=== PATIENT | male | born 1940 | race Caucasian/White ===

== ENCOUNTER 2024-07-16 06:18 | Outpatient (REF) | payer OTHER, SELFPAY ==
[2024-07-16 06:22] LABS: MANUAL DIFF FLAG NO
--- OUTSIDE RECORDS SUMMARY | 2024-07-16 06:22 | XMS_ITS | Continuity of Care Document ---
Author Organization [facility] Address [address] [place] [address]- Care Team Providers Care Supervisor Drilling And Shooting Name Role Phone Raine TOUSSAINT, Emma Jason Primary Care Physician Encounter [facility] Date(s): 06/11/24 - 07/11/[address] [id number] Encounter Type: Triage Allergies, Adverse Reactions, Alerts Substance Criticality Severity Reaction Reaction Severity Status ZyPREXA Active sulfa drugs 1 Low criticality Mild Hives rash Active Bee Stings Active 1Has taken in the past without problem Immunizations Given and Recorded Vaccine Date Status Refusal Reason influenza virus vaccine, inactivated 05/10/24 Natalio rded influenza virus vaccine, inactivated 04/29/23 Natalio rded influenza virus vaccine, inactivated 05/21/22 Give n influenza virus vaccine, inactivated 05/05/21 Natalio rded influenza virus vaccine, inactivated 04/08/20 Natalio rded influenza virus vaccine, inactivated 03/31/19 Natalio rded influenza virus vaccine, inactivated 05/21/18 Natalio rded influenza virus vaccine, inactivated 05/06/13 Natalio rded SARS-CoV-2(COVID-19)mRNA-LNP vac([id number]) 05/12/23 Recorded RSV vaccine preF3, recombinant 04/29/23 Recorded pneumococcal 20-valent conjugate vaccine 12/13/22 Given [id number] 12y+ bivalent booster vax 12/13/22 Given [id number] 12y+ bivalent booster vax 05/01/22 Recorded SARS-CoV-2 mRNA ([id number]) vax 11/17/21 Recorded pneumococcal 23-valent vaccine 06/22/21 Given SARS-CoV-2 (COVID-19) mRNA BNT-162b2 vac 05/14/21 Recorded SARS-CoV-2 (COVID-19) mRNA BNT-162b2 vac 10/09/20 Given SARS-CoV-2 (COVID-19) mRNA BNT-162b2 vac 09/18/20 Given Influenza Virus Vaccine (oldterm) 1 04/26/20 Recor ded zoster vaccine, inactivated 08/22/18 Recorded 1Result Comment: hidose Medications alendronate 70 mg oral tablet 1 tablet, By Mouth, Every week, # 12 tablet, 1 Refills, Maintenance, 05/25/24 9:18:00 AM EDT, [facility]/pharmacy #[id number], 187, cm, 05/22/24 12:25:00 EDT, Height, 73, kg, 12/08/23 11:13:00 EDT, Dry Weight Start Date: 05/25/24 Status: Ordered Quantity: 12.0 Unit: tablet Repeat number: 2 Alpha Lipoic = 600 mg, By Mouth, 2 times a day, 0 Refills, Maintenance, 10/04/22 12:54:00 PM EST, Partial fill upon patient request if the prescription is for a schedule II opioid drug. Start Date: 10/04/22 Status: Ordered Repeat number: 1 atorvastatin 80 mg oral tablet 1 tablet, By Mouth, Daily at bedtime, # 90 tablet, 1 Refills, Maintenance, 06/22/24 3:09:00 PM EST,[id number], 187, cm, 06/11/24 10:12:00 EST, Height, 73, kg, 12/08/23 11:13:00 EDT, Dry Weight Start Date: 06/22/24 Status: Ordered Quantity: 90.0 Unit: tablet Repeat number: 1 BD UF MINI PEN NEEDLE [id number] BD UF MINI PEN NEEDLE [id number], See Instructions, # 360 Unknown, 4 Refills, Maintenance, USE TO INJECT INSULIN 4 TIMES DAILY, 07/21/23 2:44:00 PM EST, 187, cm, 07/19/23 11:08:00 EST, Height, 77.3, kg,07/17/23 6:30:00 EST, Dry Weight Start Date: 07/21/23 Status: Ordered Quantity: 360.0 Unit: Unknown Repeat number: 1 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 Refills 0, Maintenance, 1 pair, 04/15/24 9:45:00 AM EDT, Supply Start Date: 04/15/24 Status: Ordered Quantity: 1.0 Unit: Unknown Repeat number: 1 docusate sodium = 100 mg, By Mouth, 2 times a day, PRN as needed for constipation, 0 Refills, Maintenance, 10/24/16 4:06:07 PM EDT Start Date: 10/24/16 Status: Ordered Repeat number: 1 donepezil 10 mg oral tablet 1, tablet, By Mouth, Daily, # 90 tablet, Refills 3, Maintenance, 04/05/24 4:04:00 PM EDT, Route to Pharmacy Electronically, [id number], 187, cm, 02/03/24 11:37:00 EDT, Height, 73, kg, 12/08/23 11:13:00 EDT, Dry Weight Start Date: 04/05/24 Status: Ordered Quantity: 90.0 Unit: tablet Repeat number: 1 Eliquis 5 mg oral tablet 1 tablet, By Mouth, 2 times a day, # 180 tablet, 3 Refills, Maintenance, 06/21/24 3:30:00 PM EST, [id number], 187, cm, 06/11/24 10:12:00 EST, Height, 73, kg, 12/08/23 11:13:00 EDT, Dry Weight Start Date: 06/21/24 Status: Ordered Quantity: 180.0 Unit: tablet Repeat number: 1 EpiCeram Skin Barrier Emulsion 0 Refills, Maintenance, 10/04/22 12:54:00 PM EST, Partial fill upon patient request if the prescription is for a schedule II opioid drug. Start Date: 10/04/22 Status: Ordered Repeat number: 1 EpiPen 2-Bismark 0.3 mg injectable kit = 0.3 mg, Intramuscular, Once, PRN Anaphylactic Reaction, may repeat if necessary, # 1 kit, 5 Refills, Soft Stop, 01/16/24 6:54:00 AM EDT, [facility]/pharmacy #[id number], 187, cm, 01/08/24 10:15:00 EDT, Height, 73, kg, 12/08/23 11:13:00 EDT, Dry Weight Start Date: 01/16/24 Status: Ordered Quantity: 1.0 Unit: kit Repeat number: 6 escitalopram 10 mg oral tablet 1 tablet, By Mouth, Daily, # 90 tablet, 3 Refills, Maintenance, 10/09/23 10:31:00 AM EST, [id number], 187, cm, 08/25/23 11:05:00 EST, Height, 77.3, kg, 07/17/23 6:30:00 EST, Dry Weight Start Date: 10/09/23 Status: Ordered Quantity: 90.0 Unit: tablet Repeat number: 1 FREESTYLE 28G LANCETS FREESTYLE 28G LANCETS, See Instructions, # 300 Unknown, 1 Refills, Maintenance, USE TO CHECK BLOOD SUGAR 3 TIMES DAILY, 03/29/24 3:57:00 PM EDT, 187, cm, 02/03/24 11:37:00 EDT, Height, 73, kg, 12/08/23 11:13:00 EDT, Dry Weight Start Date: 03/29/24 Status: Ordered Quantity: 300.0 Unit: Unknown Repeat number: 1 FREESTYLE 28G LANCETS FREESTYLE 28G LANCETS, See Instructions, # 100 Unknown, 11 Refills, Maintenance, USE TO CHECK BLOODSUGAR 3 TIMES DAILY. E10.65., 05/27/23 1:45:00 PM EDT, 187, cm, 04/14/23 11:34:00 EDT, Height, 72, kg, 01/22/23 17:28:00 EDT, Dry Weight Start Date: 05/27/23 Status: Ordered Quantity: 100.0 Unit: Unknown Repeat number: 1 FreeStyle Nemesio 2 Cuero FreeStyle Nemesio 2 Cuero, See Instructions, # 1 each, Refills 0, Tot. Refills 0, Maintenance, use to continuously monitor BG levels. E11.9, 01/16/22 12:01:00 PM EDT, Supply, 187, cm, 01/16/22 10:01:00EDT, Height, 67, kg, 09/06/21 15:00:00 EST, Dry Weight Start Date: 01/16/22 Status: Ordered Quantity: 1.0 Unit: each Repeat number: 1 FreeStyle Nemesio 2 Sensors FreeStyle Nemesio 2 Sensors, See Instructions, # 2 each, Refills 9, Tot. Refills 9, Maintenance, Use to continuously monitor BG levels. Change every 14 days. E11.9, 01/16/22 12:02:00 PM EDT, Supply, 187, cm, 01/16/22 10:01:00 EDT, Height, 67, kg, 09/06/21 15:00:00 EST, Dry Weight Start Date: 01/16/22 Status: Ordered Quantity: 2.0 Unit: each Repeat number: 10 Freestyle Lite Lancets See Instructions, # 100 each, Refills 11, Tot. Refills 11, Maintenance, Use to check blood sugar 3 times daily. E10.65., 05/09/22 8:49:00 AM EDT, Supply, 187, cm, 05/04/22 10:58:00 EDT, Height, 67, kg, 09/06/21 15:00:00 EST, Dry Weight Start Date: 05/09/22 Stop Date: 05/04/23 Status: Ordered Quantity: 100.0 Unit: each Repeat number: 12 Lancets See Instructions, # 400 each, Refills 3, Tot. Refills 3, Maintenance, onetouch delica lancets use 4times daily e11.9, 07/15/23 4:54:00 PM EST, Supply, 187, cm, 07/07/23 9:29:00 EST, Height, 72, kg, 01/22/23 17:28:00 EDT, Dry Weight Start Date: 07/15/23 Status: Ordered Quantity: 400.0 Unit: each Repeat number: 4 Lantus Solostar Pen 100 units/mL subcutaneous solution See Instructions, Take 17 units Subcutaneous Infusion Daily. E11.9, # 15 mL, 4 Refills, Maintenance, 01/08/24 11:15:00 AM EDT, [facility]/pharmacy #[id number], Partial fill upon patient request if the prescription is for a schedule II opioid drug., 187, cm, 01/08/24 10:15:00 EDT, Height, 73, kg, 12/08/23 11:13:00EDT, Dry Weight Start Date: 01/08/24 Status: Ordered Quantity: 15.0 Unit: mL Repeat number: 5 Loratadine By Mouth, Daily, Refills 0, Maintenance, 05/04/22 10:59:00 AM EDT, Partial fill upon patient requestif the prescription is for a schedule II opioid drug. Start Date: 05/04/22 Status: Ordered Repeat number: 1 Melatonin Daily at bedtime, 0 Refills, Maintenance, 01/22/23 5:26:00 PM EDT, Partial fill upon patient requestif the prescription is for a schedule II opioid drug. Start Date: 01/22/23 Status: Ordered Repeat number: 1 memantine 10 mg oral tablet 1 tablet, By Mouth, 2 times a day, # 180 tablet, 2 Refills, Maintenance, 10/09/23 10:31:00 AM EST, [id number], 187, cm, 08/25/23 11:05:00 EST, Height, 77.3, kg, 07/17/23 6:30:00 EST, Dry Weight Start Date: 10/09/23 Status: Ordered Quantity: 180.0 Unit: tablet Repeat number: 1 Metaxalone = 800 mg, By Mouth, 2 times a day, 0 Refills, Maintenance, 01/22/23 5:25:00 PM EDT, Partial fill upon patient request if the prescription is for a schedule II opioid drug. Start Date: 01/22/23 Status: Ordered Repeat number: 1 MiraLax oral powder for reconstitution = 17 Gm, By Mouth, 3 times a day, # 238 Gm, 0 Refills, Maintenance, 08/25/23 11:05:00 AM EST, REC Powder, Partial fill upon patient request if the prescription is for a schedule II opioid drug. Start Date: 08/25/23 Status: Ordered Quantity: 238.0 Unit: g Repeat number: 1 Multivitamin Daily, 0 Refills, Maintenance, 10/24/16 4:05:55 PM EDT Start Date: 10/24/16 Status: Ordered Repeat number: 1 NovoLOG FlexPen 100 units/mL subcutaneous solution See Instructions, Subcutaneous Injection, Use 6-11 units before meals via slidings scale. MDD 33 units e11.9, # 30 mL, 4 Refills, Maintenance, 01/08/24 11:14:00 AM EDT, [facility]/pharmacy #[id number], Partial fillupon patient request if the prescription is for a schedule II opioid drug., 187, cm, 01/08/24 10:15:00 EDT, Height, 73, kg, 12/08/23 11:13:00 EDT, Dry Weight Start Date: 01/08/24 Stop Date: 04/02/25 Status: Ordered Quantity: 30.0 Unit: mL Repeat number: 5 One touch Verio strips One touch Verio strips, See Instructions, # 200 each, Refills 6, Tot. Refills 6, Maintenance, Used to check BG 4x/day DX E10.65, 08/30/22 5:45:00 PM EST, Supply, 186, cm, 08/30/22 15:48:00 EST, Height, 67, kg, 05/20/22 15:54:00 EDT, Dry Weight Start Date: 08/30/22 Status: Ordered Quantity: 200.0 Unit: each Repeat number: 7 ONE TOUCH VERIO TEST STRIP ONE TOUCH VERIO TEST STRIP, See Instructions, # 400 Unknown, 3 Refills, Maintenance, CHECK BLOOD GLUCOSE 4 TIMES A DAY, 09/30/23 12:28:00 PM EST, 187, cm, 08/25/23 11:05:00 EST, Height, 77.3, kg, 07/17/23 6:30:00 EST, Dry Weight Start Date: 09/30/23 Status: Ordered Quantity: 400.0 Unit: Unknown Repeat number: 1 One Touch Verio Test Strips One Touch Verio Test Strips, See Instructions, # 150 each, Refills 9, Tot. Refills 9, Maintenance, Use to check BG levels 4-5 times daily. E11.9., 01/16/22 12:03:00 PM EDT, Supply, 187, cm, 01/16/22 10:01:00 EDT, Height, 67, kg, 09/06/21 15:00:00 EST, Dry Weight Start Date: 01/16/22 Status: Ordered Quantity: 150.0 Unit: each Repeat number: 10 ONETOUCH VERIO FLEX METER ONETOUCH VERIO FLEX METER, See Instructions, # 1 Unknown, 0 Refills, Maintenance, 1 GLUCOMETER TO USE DAILY. E11.9, 08/03/23 10:49:00 AM EST, 187, cm, 07/19/23 11:08:00 EST, Height, 77.3, kg, 07/17/23 6:30:00 EST, Dry Weight Start Date: 08/03/23 Status: Ordered Quantity: 1.0 Unit: Unknown Repeat number: 1 OneTouch Verio Glucose Meter See Instructions, # 1 each, Refills 0, Tot. Refills 0, Maintenance, 1 glucometer to use daily. e11.9, 07/07/23 10:23:00 AM EST, Supply, 187, cm, 07/07/23 9:29:00 EST, Height, 72, kg, 01/22/23 17:28:00EDT, Dry Weight Start Date: 07/07/23 Status: Ordered Quantity: 1.0 Unit: each Repeat number: 1 OneTouch Verio Lancets See Instructions, # 400 each, Refills 3, Tot. Refills 3, Maintenance, Use 4 times daily to check sugars. E11.9, 01/08/24 11:20:00 AM EDT, Supply, 187, cm, 01/08/24 10:15:00 EDT, Height, 73, kg, 12/08/23 11:13:00 EDT, Dry Weight Start Date: 01/08/24 Status: Ordered Quantity: 400.0 Unit: each Repeat number: 4 OneTouch Verio Test Strips See Instructions, # 400 each, Refills 3, Tot. Refills 3, Maintenance, Use 4 times daily to check blood sugars. E11.9, 01/08/24 11:19:00 AM EDT, Supply, 187, cm, 01/08/24 10:15:00 EDT, Height, 73, kg, 12/08/23 11:13:00 EDT, Dry Weight Start Date: 01/08/24 Status: Ordered Quantity: 400.0 Unit: each Repeat number: 4 Pen Brawley, 31 G x 5 mm BD Ultra Fine III See Instructions, # 150 each, Refills 11, Tot. Refills 11, Maintenance, Use to inject insulin 4 times daily. E10.65., 30 day supply, 01/08/24 11:15:00 AM EDT, Supply, 187, cm, 01/08/24 10:15:00 EDT, Height, 73, kg, 12/08/23 11:13:00 EDT, Dry Weight Start Date: 01/08/24 Stop Date: 01/02/25 Status: Ordered Quantity: 150.0 Unit: each Repeat number: 12 SEROquel 50 mg oral tablet 1.5 tablet = 75 mg, By Mouth, Daily, # 135 tablet, 3 Refills, Maintenance, 01/14/24 12:58:00 PM EDT,Tablet, [facility]/pharmacy #[id number], Partial fill upon patient request if the prescription is for a scheduleII opioid drug., 187, cm, 01/08/24 10:15:00 EDT, Height, 73, kg, 12/08/23 11:13:00 EDT, Dry Weight Start Date: 01/14/24 Status: Ordered Quantity: 135.0 Unit: tablet Repeat number: 4 Tamsulosin 0.4 mg, By Mouth, Daily at bedtime, Refills 0, Maintenance, 01/22/23 5:25:00 PM EDT, Partial fill upon patient request if the prescription is for a schedule II opioid drug. Start Date: 01/22/23 Status: Ordered Repeat number: 1 valsartan 160 mg oral tablet 160 mg, 1, tablet, By Mouth, Daily, # 90 tablet, Refills 3, Tot. Refills 3, Maintenance, 12/23/22 12:45:00 PM EDT, Route to Pharmacy Electronically, [facility]/pharmacy #[id number], Partial fill upon patient request if the prescription is for a schedule II opioid drug., 187, cm, 12/17/22 11:29:00 EDT, Height, 57.1, kg, 11/21/22 21:57:00 EDT, Dry Weight Start Date: 12/23/22 Stop Date: 12/18/23 Status: Ordered Quantity: 90.0 Unit: tablet Repeat number: 4 VITAMIN D3 1,000 UNIT SOFTGEL 1 capsule, By Mouth, Daily, # 90 capsule, Refills 3 Tot. Refills 3, [facility]/pharmacy #[id number] Start Date: 07/05/19 Status: Ordered Quantity: 90.0 Unit: capsule Repeat number: 4 Problem List Condition Confirmation Course Effective Dates Status Health Status Informant Actinic keratosis Confirmed Active Adverse drug effect Confirmed Active Change in bowel habits Confirmed Active Weakness generalized Confirmed Active Generalized weakness Confirmed Active Ataxia Confirmed Active Bee sting-induced anaphylaxis Confirmed Active Edema of both legs Confirmed Active Bronchiectasis Confirmed Active Burning sensation of scrotum Confirmed Active Pseudogout Confirmed Active Chronic back pain Confirmed Active Chronic constipation Confirmed Active Obsessive-compulsive behavior Confirmed Active Coronary arteriosclerosis Confirmed Active Cough Confirmed Active Vaccine counseling Confirmed Active Degeneration of lumbar intervertebral disc Confirmed Active Degenerative joint disease involving multiple joints Confirmed Active Dementia Confirmed Active Diabetes mellitus Confirmed Active Diabetic neuropathy Confirmed Active Diarrhea Confirmed Active Mild diastolic dysfunction Confirmed Active Dizziness Confirmed Active Dysphagia Confirmed Active Dyspnea Confirmed Active Pedal edema Confirmed Active Fall at home Confirmed Active Tremor of both hands Confirmed Active Gastritis Confirmed Active GERD (gastroesophageal reflux disease) Confirmed Active Genetic mutation Confirmed Active Hand pain, left Confirmed Active History of Lyme disease Confirmed Active History of spinal fusion Confirmed Active Hypercholesterolemia Confirmed Active Hypertensive disorder Confirmed Active Hypomagnesemia Confirmed Active Impaired cognition Confirmed Active Dyspepsia Confirmed Active Renal lesion Confirmed Active Long-term current use of insulin Confirmed Active Symptomatic hypotension Confirmed Active Hypotension Confirmed Active Mixed dementia Confirmed Active Multiple actinic keratoses Confirmed Active Multiple nodules of lung Confirmed Active Nausea Confirmed Active DNR (do not resuscitate) Confirmed Active Osteoarthritis, multiple sites Confirmed Active Osteoporosis Confirmed Active Wrist pain, left Confirmed Active Paresthesia Confirmed Active Paroxysmal atrial fibrillation Confirmed Active Healthcare maintenance Confirmed Active Advance care planning Confirmed Active Therapeutic drug monitoring Confirmed Active Colon polyp Confirmed Active Loose muscle tone Confirmed Active Rectal irritation Confirmed Active Sensorineural hearing loss, bilateral Confirmed Active Solar erythema Confirmed Active Skin tear of elbow without complication Confirmed Active Vitamin D deficiency Confirmed Active Social History Social History Type Response Smoking Status Never smoker entered on: 02/15/16 Sex Sex Representation Male (finding) Patient Care team information Care Team Personnel Name: Ghada Rodrigues RN Position: [facility] RN Member Role: Primary Care Nurse Name: Emma Ni MD Position: [facility] Physician - Primary Care Member Role: PCP Address: [address] [place] [address], [address] [place] [id number] Telecom: Name: Fela Harding RN Position: [facility] RN Member Role: Primary Care Nurse Name: Catrina Millan RN Position: [facility] RN Member Role: Primary Care Nurse Name: Ellie Celestin RN Position: [facility] RN Member Role: Primary Care Nurse Name: Elayne Casanova RN Position: [facility] RN Member Role: Primary Care Nurse Name: Surinder Gu RN Position: [facility] RN Member Role: Primary Care Nurse Name: Vicki Blake [place] Position: [facility] JCARLOS Office Staff Member Role: [employer] Consulting Physician Name: Elissa Pina RN Position: [facility] RN Supv Member Role: Primary Care Nurse Name: Jailyn Pike RN Position: [facility] RN Member Role: Primary Care Nurse Name: Pita Ray RN Position: [facility] ED RN W/OE and Tasks Member Role: Primary Care Nurse Name: Tami Joiner NP Position: [facility] Associate Professional Member Role: Primary Care Nurse Address: [address] [place] [address] [address] [facility] [address] Telecom: Name: Gama Blanc RN Position: [facility] AMB Nurse Member Role: Primary Care Nurse Name: Denisha Abel RN Position: [facility] SN RN Member Role: Primary Care Nurse Care Team Related Persons Name: November Name: ROBER SINGH Insurance Providers Guarantor name: MARLENE SINGH [facility] Plan Information #: 1 Payer: [facility] Member Number: NA Policy Number: NA Group Number: NA
[2024-07-16 06:29] LABS: Basophils Percent Auto 0.6 % (0-2); Eosinophils Absolute Auto 0.3 X10*3/uL (0.0-0.4); Hematocrit 40.4 % (42.0-52.0); Hemoglobin 13.9 g/dl (14.0-18.0); Imm Gran Abs Auto 0.02 X10*3/uL (0.00-0.03); Imm Gran Pct Auto 0.3 % (0.0-0.4); Lymphocytes Absolute Auto 1.3 X10*3/uL (1.2-4.9); Lymphocytes Percent Auto 20.7 % (20-40); Mean Corpuscular HGB Conc 34.4 g/dl (31.0-36.0); Mean Corpuscular Volume 93.1 fL (80.0-98.0); Mean Platelet Volume 9.9 fL (9.4-12.4); Monocytes Percent Auto 16.2 % (2-11); Neutrophils Absolute Auto 3.6 x10*3/uL (2.0-8.3); Neutrophils Percent Auto 57.2 % (45-73); Platelet Count 233 X10*3/uL (160-400); Red Blood Count 4.34 X10*6/uL (4.60-5.80); Red Cell Distribution Width 12.6 % (11.0-16.0); White Blood Count 6.4 X10*3/uL (4.8-10.8)
[2024-07-16 06:53] LABS: Alanine Aminotransferase 18 U/L (0-40); Albumin Level 3.8 g/dL (3.5-5.0); Alkaline Phosphatase 111 U/L (39-117); Anion Gap 13 (12-20); Aspartate Amino Transferase 21 U/L (5-37); Bilirubin Total 0.3 mg/dL (0.0-1.0); Blood Urea Nitrogen 19 mg/dL (9-16); Calcium 9.1 mg/dL (8.4-10.2); Carbon Dioxide 26 mmol/L (22-29); Chloride 105 mmol/L (96-108); Cholesterol 157 mg/dL (<200); Estimated Glomerular Filt Rate > 60; Glucose Fasting 271 mg/dL (60-99); HDL Cholesterol 53 mg/dL (>40); LDL Cholesterol Calculated 91 mg/dL (<100); Potassium 3.6 mmol/L (3.3-5.1); Sodium 140 mmol/L (135-145); Total Protein 6.7 g/dL (6.5-8.0); Triglycerides 65 mg/dL (<150)
[2024-07-16 07:08] LABS: Thyroid Stimulating Hormone 5.52 uIU/mL (0.32-4.0)
[2024-07-19 16:30] LABS: TS Negative Control Passed; TS Panel A 0; TS Panel B 0; TS Positive Control Passed; TSpotTB Negative (Negative)
== END 2024-07-16 06:19 | disposition home or self-care (01) ==
LOC: HO.HSH2N 06:18
PROVIDERS: Visit Provider Internal Medicine Interventional Cardiology
DX: E11.9 Type 2 diabetes mellitus without complications (principal); I10 Essential (primary) hypertension; E78.5 Hyperlipidemia, unspecified
CPT/HCPCS: 36415; 80053; 80061; 82306; 84443; 85025; 86481

== ENCOUNTER 2024-07-19 07:07 | Outpatient (REF) | payer OTHER, SELFPAY ==
[2024-07-19 07:44] LABS: Estimated Average Glucose 194 mg/dL; Hemoglobin A1C 246.9687 umol/L; Hemoglobin A1c % 8.4 % (<6.0); Total Hemoglobin (HGBA1C) 3602.5742 umol/L
[2024-07-19 08:10] LABS: T4 Thyroxine 7.7 ug/dL (4.5-12.0)
== END 2024-07-19 07:08 | disposition home or self-care (01) ==
LOC: HO.HSH2N 07:07
PROVIDERS: Visit Provider Nurse Practitioner
DX: E11.9 Type 2 diabetes mellitus without complications (principal)
CPT/HCPCS: 36415; 83036; 84436

== ENCOUNTER 2024-10-06 06:36 | Outpatient (REF) | payer OTHER, SELFPAY ==
[2024-10-06 07:09] LABS: Anion Gap 11 (12-20); Blood Urea Nitrogen 24 mg/dL (9-16); Calcium 9.4 mg/dL (8.4-10.2); Carbon Dioxide 30 mmol/L (22-29); Chloride 106 mmol/L (96-108); Estimated Glomerular Filt Rate > 60; Glucose Random 160 mg/dL (60-115); Potassium 4.2 mmol/L (3.3-5.1); Sodium 143 mmol/L (135-145)
[2024-10-06 07:25] LABS: Thyroid Stimulating Hormone 2.14 uIU/mL (0.32-4.0)
[2024-10-06 07:49] LABS: Estimated Average Glucose 229 mg/dL; Hemoglobin A1C 276.9896 umol/L; Hemoglobin A1c % 9.6 % (<6.0); Total Hemoglobin (HGBA1C) 3382.6914 umol/L
== END 2024-10-06 06:37 | disposition home or self-care (01) ==
LOC: HO.HSH 06:36
PROVIDERS: Visit Provider Internal Medicine Interventional Cardiology
DX: E11.9 Type 2 diabetes mellitus without complications (principal); R94.6 Abnormal results of thyroid function studies
CPT/HCPCS: 36415; 80048; 83036; 84443

== ENCOUNTER 2024-11-01 07:04 | Outpatient (REF) | payer OTHER, SELFPAY ==
[2024-11-01 07:21] LABS: MANUAL DIFF FLAG NO
[2024-11-01 07:29] LABS: Basophils Percent Auto 0.5 % (0-2); Eosinophils Absolute Auto 0.5 X10*3/uL (0.0-0.4); Hematocrit 37.5 % (42.0-52.0); Hemoglobin 12.6 g/dl (14.0-18.0); Imm Gran Abs Auto 0.03 X10*3/uL (0.00-0.03); Imm Gran Pct Auto 0.4 % (0.0-0.4); Lymphocytes Absolute Auto 1.3 X10*3/uL (1.2-4.9); Lymphocytes Percent Auto 16.7 % (20-40); Mean Corpuscular HGB Conc 33.6 g/dl (31.0-36.0); Mean Corpuscular Hemoglobin 31.6 pg (27.0-33.0); Mean Platelet Volume 9.7 fL (9.4-12.4); Monocytes Percent Auto 12.9 % (2-11); Neutrophils Absolute Auto 5.1 x10*3/uL (2.0-8.3); Neutrophils Percent Auto 63.5 % (45-73); Platelet Count 279 X10*3/uL (160-400); Red Blood Count 3.99 X10*6/uL (4.60-5.80); Red Cell Distribution Width 12.6 % (11.0-16.0)
[2024-11-01 07:47] LABS: Anion Gap 12 (12-20); Blood Urea Nitrogen 21 mg/dL (9-16); Calcium 8.9 mg/dL (8.4-10.2); Carbon Dioxide 28 mmol/L (22-29); Chloride 105 mmol/L (96-108); Estimated Glomerular Filt Rate > 60; Glucose Random 223 mg/dL (60-115); Potassium 3.9 mmol/L (3.3-5.1); Sodium 141 mmol/L (135-145)
== END 2024-11-01 07:05 | disposition home or self-care (01) ==
LOC: HO.HSH2N 07:04
PROVIDERS: Visit Provider Nurse Practitioner
DX: R05.9 Cough, unspecified (principal)
CPT/HCPCS: 36415; 80048; 85025

== ENCOUNTER 2024-12-23 07:49 | Outpatient (REF) | payer OTHER, SELFPAY ==
[2024-12-23 08:17] LABS: Alanine Aminotransferase 17 U/L (0-40); Albumin Level 3.9 g/dL (3.5-5.0); Alkaline Phosphatase 106 U/L (39-117); Aspartate Amino Transferase 23 U/L (5-37); Bilirubin Direct 0.1 mg/dL (0.0-0.5); Bilirubin Total 0.3 mg/dL (0.0-1.0); Total Protein 6.7 g/dL (6.5-8.0)
== END 2024-12-23 07:50 | disposition home or self-care (01) ==
LOC: HO.HSH2N 07:49
PROVIDERS: Visit Provider Internal Medicine Interventional Cardiology
DX: T88.7XXA Unspecified adverse effect of drug or medicament, initial encounter (principal); T46.6X5A Adverse effect of antihyperlipidemic and antiarteriosclerotic drugs, initial encounter; Y92.9 Unspecified place or not applicable
CPT/HCPCS: 36415; 80076

== ENCOUNTER 2025-01-04 06:49 | Outpatient (REF) | payer OTHER, SELFPAY ==
[2025-01-04 07:26] LABS: Valproate 20.8 mcg/mL (50.0-100.0)
[2025-01-04 07:38] LABS: Estimated Average Glucose 203 mg/dL; Hemoglobin A1c % 8.7 % (<6.0); Total Hemoglobin (HGBA1C) 3593.6856 umol/L
== END 2025-01-04 06:50 | disposition home or self-care (01) ==
LOC: HO.HSH2N 06:49
PROVIDERS: Visit Provider Internal Medicine Interventional Cardiology
DX: E11.9 Type 2 diabetes mellitus without complications (principal); Z79.899 Other long term (current) drug therapy
CPT/HCPCS: 36415; 80164; 83036

== ENCOUNTER 2025-01-17 13:21 | Outpatient (REF) | payer OTHER, SELFPAY ==
[2025-01-17 13:35] LABS: Basophils Absolute Auto 0.1 X10*3/uL (0.0-0.2); Basophils Percent Auto 0.4 % (0-2); Eosinophils Absolute Auto 0.1 X10*3/uL (0.0-0.4); Eosinophils Percent Auto 0.7 % (0-4); Hematocrit 38.8 % (42.0-52.0); Hemoglobin 12.7 g/dl (14.0-18.0); Imm Gran Pct Auto 0.6 % (0.0-0.4); Lymphocytes Absolute Auto 0.9 X10*3/uL (1.2-4.9); Lymphocytes Percent Auto 5.4 % (20-40); MANUAL DIFF FLAG SCAN; Mean Corpuscular HGB Conc 32.7 g/dl (31.0-36.0); Mean Corpuscular Hemoglobin 31.3 pg (27.0-33.0); Mean Corpuscular Volume 95.6 fL (80.0-98.0); Mean Platelet Volume 9.8 fL (9.4-12.4); Monocytes Absolute Auto 1.9 X10*3/uL (0.1-1.2); Monocytes Percent Auto 11.7 % (2-11); Neutrophils Percent Auto 81.2 % (45-73); Platelet Count 234 X10*3/uL (160-400); Red Blood Count 4.06 X10*6/uL (4.60-5.80); Red Cell Distribution Width 12.7 % (11.0-16.0); SCAN SMEAR FLAG 1
[2025-01-17 13:57] LABS: SLIDE REVIEW VERIFIED
== END 2025-01-17 13:22 | disposition home or self-care (01) ==
LOC: HO.HSH2N 13:21
PROVIDERS: Visit Provider Internal Medicine Interventional Cardiology
DX: F03.90 Unspecified dementia, unspecified severity, without behavioral disturbance, psychotic disturbance, mood disturbance, and anxiety (principal)
CPT/HCPCS: 36415; 85025

== ENCOUNTER 2025-03-07 14:39 | Outpatient (REF) | payer OTHER, SELFPAY ==
--- NOTE | ~2025-03-07 | FL_ITS ---
EXAMINATION: Modified Barium Swallow CLINICAL INFORMATION: Dysphagia. COMPARISON: None. TECHNIQUE: Modified barium swallow was performed under lateral fluoroscopy with patient in standing position. Barium mixed with solids and liquids of different consistencies was administered by the speech pathologist. Examination was recorded in the fluoroscopy suite. FINDINGS: There was laryngeal penetration without aspiration on thin liquids. There was subglottic aspiration on nectar thick liquids. This initiated a cough response. No laryngeal penetration or aspiration on honey thick liquids. There was persistent spillage and pooling in the vallecula and piriform sinuses with retention of residues. These were cleared by subsequent swallows. FLUOROSCOPY TIME: 3 minutes, 20 seconds Number of Spot Images: N/A DOSE AREA PRODUCT: [id number] uGy-m2 (microgray-meter squared) FL/FL Modified Barium Swallow IMPRESSION: 1. There was aspiration on nectar thick liquids. 2. There was persistent laryngeal penetration without definite aspiration on thin liquids. 3. There was no penetration or aspiration on honey thick liquids. Please refer to the full speech therapy report to follow for further detail. Electronically signed by: Johnathan Borja MD 03/07/2025 03:30 PM EDT
--- OUTSIDE RECORDS SUMMARY | 2025-03-07 14:42 | XMS_ITS | Encounter Summary ---
Author Organization [facility] Address [address] [facility] [address] [place] [address] Phone Care Team Providers Care Donor Support Technician Name Role Phone Brian Hurd MD Primary Care Provider [phone] Reason for Visit * Reason Comments Other Encounter Details Date Type Department Care Team (Late st Contact Info) Description 09/02/2015 Refill [facility] [address] [place] [id number] Brian Hurd MD [address] [address] [email or web address] U Other Social History Tobacco Use Types Packs/Day Years Used Date Smoking Tobacco: Never Alcohol Use Standard Drinks/Week Comments No 0 (1 standard drink = 0.6 oz pur e alcohol) Sex and Gender Information Value Date Recorded Sex Assigned at Not on file Legal Sex Male 2:55 PM EDT Gender Identity Not on file Sexual Orientation Not on file documented as of this encounter Plan of Treatment Not on file documented as of this encounter Visit Diagnoses Not on filedocumented in this encounter Care Teams Donor Support Technician Relationship Specialty Start Date End Date Brian Hurd MD [address], [place] [address] [email or web address] PCP - General Internal Medicine 05/18/15 documented as of this encounter Additional Source Comments The information contained in this document represents components of the legal health record. It is not the complete legal health record.[facility]
--- OUTSIDE RECORDS SUMMARY | 2025-03-07 14:42 | XMS_ITS | Clinical Summary ---
Author Organization [employer] Address [address] [facility] [address] [place] [address] Care Team Providers Care Car Inspector Name Role Phone Unavailable Primary Care Provider Unavailabl e Allergies Active Allergy Reactions Criticality Noted Date Comments Bee Venom 07/26/2024 Sulfadimethoxine 07/26/2024 Olanzapine 07/26/2024 Medications amoxicillin (Amoxil) 500 MG capsule TAKE 4 CAPSULES BY MOUTH 1 HOUR PRIOR TO DENTAL APPOINTMENT 4 Active bisacodyl (Dulcolax) 5 MG EC tablet Take 5 mg by mouth if needed each day for constipation. Do not crush, chew, or split. Active gabapentin (Neurontin) 100 MG capsule Take by mouth. Acti ve acetaminophen (Tylenol) 325 MG tablet Take by mouth. Activ e QUEtiapine (SEROquel) 25 MG tablet Take 25 mg by mouth at bedtime. Active polyethylene glycol, PEG, 3350 (Miralax) 17 g packet Take by mouth if needed. Active senna-docusate (Fernanda-Colace) 8.6-50 MG tablet Take 1 tablet by mouth Once per day. Active valsartan (Diovan) 160 MG tablet Take 160 mg by mouth Once per day. Active EPINEPHrine (AUVI-Q) 0.15 mg/0.15 mL IJ solution auto-injector injection Inject into the muscle if needed for anaphylaxis. Active atorvastatin (Lipitor) 80 MG tablet Take 80 mg by mouth at bedtime. 4 Active donepezil (Aricept) 10 MG tablet Take 1 tablet by mouth Once per day. 4 Active escitalopram (Lexapro) 10 MG tablet Take 1 tablet by mouth Once per day. 4 Active OneTouch Verio test strip CHECK BLOOD GLUCOSE 4 TIMES A DAY 4 Active NovoLOG FLEXPEN 100 UNIT/ML pen USE 6-11 UNITS BEFORE MEALS VIA SLIDINGS SCALE. MAX 33 UNITS/DAY 4 Active Lantus SoloStar 100 UNIT/ML pen 4 Active B-D UF III MINI PEN NEEDLES 31G X [address] [facility] [place] TO INJECT INSULIN 4 TIMES DAILY. E10.65., 30 DAY SUPPLY 4 Active FreeStyle lancets USE TO CHECK BLOOD SUGAR 3 TIMES DAILY 4 Active memantine (Namenda) 10 MG tablet Take 1 tablet by mouth 2 times daily. 4 Active apixaban (Eliquis) 5 MG tablet Take 5 mg by mouth 2 times daily. Active Melatonin 3 MG capsule Take by mouth. Activ e albuterol (2.5 MG/3ML) 0.083% nebulizer solution Take by nebulization every 6 (six) hours if needed for wheezing. Active alendronate (Fosamax) 70 MG tablet Take 70 mg by mouth every 7 (seven) days. Take in the morning with a full glass of water, on an empty stomach, and do not take anything else by mouth or lie down for the next 30 min. Active cyclobenzaprine (Flexeril) 5 MG tablet Take by mouth. Activ e Glucagon, rDNA, (GLUCAGON EMERGENCY IJ) Inject as directed. Active docusate sodium (Colace) 100 MG capsule Take 100 mg by mouth 2 times daily. Active insulin lispro protamine-insul in lispro (HumaLOG MIX 50/50 KWIKPEN) (50-50) 100 UNIT/ML injection Inject under the skin with breakfast and with evening meal. Active TAMSULOSIN HCL PO Take 0.4 mg by mouth in the morning. Active Multiple Vitamin (multivitamin) tablet Take 1 tablet by mouth Once per day. Active cholecalciferol (Vitamin D-3) 25 MCG tablet Take 25 mcg by mouth Once per day. Active loratadine (Claritin) 10 MG tablet Take 10 mg by mouth Once per day. Active amLODIPine (Norvasc) 10 MG tablet Take 10 mg by mouth Once per day. Active divalproex sprinkle (Depakote Sprinkle) [address] capsule Take 250 mg by mouth 2 times daily. Active Active Problems No known active problems Encounters Date Type Department Care Team Description 02/16/2025 8:45 AM EDT Office Visit [facility] [address] [place] [address] [phone] Roxie Rodriguez from Last 3 Months Social History Tobacco Use Types Packs/Day Years Used Date Smoking Tobacco: Unknown Tobacco Cessation:Counseling Given: Not Answered Alcohol Use Standard Drinks/Week Comments Defer 0 (1 standard drink = 0.6 oz pur e alcohol) Sex and Gender Information Value Date Recorded Sex Assigned at Male 07/22/2024 9:21 AM EST Legal Sex Male 9:21 AM EST Gender Identity Male 07/22/2024 9:21 AM EST Sexual Orientation Straight 07/22/2024 9: 21 AM EST Last Filed Vital Signs Vital Sign Reading Time Taken Comments Blood Pressure 122/76 02/16/2025 8:53 AM EDT Pulse 64 02/16/2025 8:53 AM EDT Temperature - - Respiratory Rate - - Oxygen Saturation - - Inhaled Oxygen Concentration - - Weight - - Height - - Body Mass Index - - Plan of Treatment Upcoming Encounters Date Type Department Care Team ([facility] st Contact Info) Description 03/16/2025 3:15 PM EDT Office Visit [facility] [address] [place], [place] [phone] Kash Yepez, DMD [address] [place], [place] [phone] Health Maintenance Due Date Last Done Comments Depression Screening 1940 Lipid Panel 1940 SDOH Screening 1940 Alcohol/Substance Use Screening 1952 DTaP/Tdap/Td Vaccines (1 - Tdap) 1959 Pneumococcal Vaccine: 50+ Years (1 of 1 - PCV) 1990 Zoster Vaccines (1 of 2) 1990 RSV Patients and Patients Aged 60 years or older (1 - 1-dose 75+ series) 2015 COVID-19 Vaccine ( - 2023-2 5 season) 2024 Dental Oral Exam 02/16/2025 08/18/2024 Influenza Vaccine (#1) 2025 Dental X-Ray: Bitewings 07/27/2025 07/26/2024 Dental Prophylaxis 08/20/2025 02/16/2025, 11/18/2024, 07/26/2024 Tobacco Screening 02/16/2026 02/16/2025 Dental X-Ray: Full Mouth 07/27/2027 07/26/2024 HIB Vaccines Aged Out No longer eligi ble based on patient's age to complete this topic HPV Vaccines Aged Out No longer eligi ble based on patient's age to complete this topic Hepatitis A Vaccines Aged Out No long er eligible based on patient's age to complete this topic Hepatitis B Vaccines Aged Out No long er eligible based on patient's age to complete this topic IPV Vaccines Aged Out No longer eligi ble based on patient's age to complete this topic Meningococcal B Vaccine Aged Out No l onger eligible based on patient's age to complete this topic Meningococcal Vaccine Aged Out No coco jay eligible based on patient's age to complete this topic RSV under 20 months Aged Out No longe r eligible based on patient's age to complete this topic Rotavirus Vaccines Aged Out No longer eligible based on patient's age to complete this topic Procedures Procedure Name Priority Date/Time Associated Diagnosis Comments ORAL HYGIENE INSTRUCTIONS Routine 2024 8:45 AM EDT PROPHYLAXIS - ADULT Routine 02/16/2025 8 :45 AM EDT BEHAVIOR MANAGEMENT Routine 02/16/2025 8 :45 AM EDT TOPICAL APPLICATION OF FLUORIDE VARNISH Routine 02/16/2025 8:45 AM EDT COMPREHENSIVE ORAL EVALUATION - NEW OR ESTABLISHED PATIENT Routine 08/18/2024 3:00 PM EST INTRAORAL - COMPLETE SERIES OF RADIOGRAPHIC IMAGES Routine 07/26/2024 2:00 PM EST from Last 3 Months or Most Recently Relevant to Health Maintenance
--- NOTE | 2025-03-08 12:40 | MHC.SL.IMP ---
Date of Plan of Treatment: 03/07/25 Onset of Symptoms/Illness: 03/07/16 Date Treatment Started: 03/07/25 Admitting Diagnosis: Dementia Primary Speech & Language Diagnosis: R13.12 Oropharyngeal Phase Dysphagia Reason for Today's Visit: 90311 Modified Barium Swallow Study Pre-evaluation Dietary Consistencies: Pureed (NDD1) Pre-evaluation Liquid Consistency: Thickened Liquid Pre-evaluation Medication Administration: Crushed with Puree Medical History: Modified Barium Swallow Study Fluoroscopic Evaluation of Swallowing Function CPT Code 49981 Evaluation Year: 2024 Reason for Study: Hx dysphagia Referring Physician: Gabriel Bernal MD Evaluating Clinician: Emmanuelel Nixon MA, CCC-ANIMAL CONTROL OFFICER Study Number: 1 Patient Name: Elbert Hernandez Status: Outpatient, Ambulatory/Assisted Age: 84 Sex: Male Medical History Dementia Current (pre-evaluation) Intake/Diet: Route: PO Diet Grade: Puree/ ?Thickened Liquids,? consistency not specified Pre-Study Functional Oral Intake Scale (FOIS): 5- Total oral intake of multiple consistencies requiring special preparation Pain: Unable to assess reported at time of study, SUBJECTIVE: Patient is an 84 year old male referred for a modified barium swallow study by Gabriel Bernal MD from the [facility] in [place]. Patient was accompanied by his , who assisted in providing background information. Patient?s reports patient?s difficulty with swallowing began in 2015 after having been intubated for almost 5 days after a back surgery. She says patient was started on a pureed diet at that point, which he continued eating for 8 months before having his swallow evaluated and being told he ?could swallow.? Patient?s reports patient is now having trouble swallowing again. She mentions patient has dementia, has a tendency to talk while eating and swallowing, and coughs during meals. Patient is reportedly on a pureed diet and thickened liquids and is seen by the speech pathologist at the [facility]. Oral Motor Exam Facial Symmetry: Symmetrical Mouth Occlusion: Normal Oral-Facial Teeth Characteristics: Intact/Normal Oral-Facial Smile (Lips) Description: Normal Tongue Size: Normal Tongue Range of Movement Description: Normal Tongue Speed of Movement Description: Normal Tongue Strength of Movement (against opposing pressure): Unable to Assess Tongue Movement Characteristics: Normal/Absent Food and Liquid Trials: Oral Impairment: Lip Closure: 0=No labial escape Oral Impairment: Tongue Control During Bolus Hold: 2=Posterior escape of less than half of bolus Oral Impairment: Bolus Preparation/Mastication: 2=Disorganized chewing/mashing with solid pieces of bolus Oral Impairment: Bolus Transport/Lingual Motion: 3=Repetitive/disorganized tongue motion Oral Impairment: Oral Residue: 2=Residue collection on oral structures Oral Impairment:Initiation of Pharyngeal Swallow: 2=Bolus head at posterior laryngeal surface of epiglottis Pharyngeal Impairment: Soft Palate Elevation: 1=Trace column of contrast or air between SP and PW Pharyngeal Impairment: Laryngeal Elevation: 0=Complete superior movement of thyroid cartilage (see description) Pharyngeal Impairment: Anterior Hyoid Excursion: 1=Partial anterior movement Pharyngeal Impairment: Epiglottic Movement: 2=No inversion Pharyngeal Impairment: Laryngeal Vestibular Closure:: 1=Incomplete: narrow column air/contrast in laryngeal vestibule Pharyngeal Impairment: Pharyngeal Stripping Wave: 1=Present: diminished Pharyngeal Impairment: Pharyngeal Contraction: Did not test Pharyngeal Impairment: Pharyngoesophageal Segment Openin=Partial distention/partial duration: partial obstruction of flow Pharyngeal Impairment: Tongue Base (TB) Retraction: 2=Narrow column of contrast/air between TB and posterior PW Pharyngeal Impairment: Pharyngeal Residue: 2=Collection of residue within or on pharyngeal structures Pharyngeal Impairment: Esophageal Clearance Upright Position: Did not test Impressions and Recommendations OBJECTIVE: Time-out: performed at 15:00 Evaluation Start: 14:30; Stop: 14:40 Patient Positioning: Seated 70-90 degrees Viewing Planes: LATERAL ONLY Contrast: MBSImP? Standardized Protocol using commercially prepared, standardized Barium viscosities, including: Varibar? THIN LIQUID (40% w/v, <15 cps) , Varibar? NECTAR (40% w/v, <150-450 cps) , Varibar? THIN HONEY (40% w/v, <800-1800 cps) , Varibar? PUDDING (40% w/v, <4193-1095 cps) , 1/2 Shortbread Cookie (1 x1 x.25 ) MBSImP ID: [id number] [facility]: Lip closure for intraoral bolus containment resulted in no labial escape. Tongue control during bolus hold resulted in posterior escape of less than half of the bolus. Bolus preparation and mastication demonstrated disorganized chewing/mashing with solid pieces of the bolus unchewed. Bolus transport/lingual motion was with repetitive/disorganized motion of the tongue. Oral residue was a collection on oral structures. Initiation of the pharyngeal swallow occurred as the bolus head was at the posterior laryngeal surface of the epiglottis. Soft palate elevation allowed a trace column of contrast or air between the soft palate and the pharyngeal wall. Laryngeal elevation demonstrated complete superior movement of the thyroid cartilage with complete approximation of the arytenoids to the epiglottic petiole. Anterior hyoid excursion demonstrated partial anterior movement. Epiglottic movement resulted in no inversion. Laryngeal vestibular closure was incomplete, with a narrow column of air/contrast noted within the laryngeal vestibule at the height of the swallow. Pharyngeal stripping wave was present, but diminished. Pharyngeal contraction could not be determined due to logistical reasons not related to physiologic impairment. Pharyngoesophageal segment opening demonstrated partial distension/partial duration, with partial obstruction of bolus flow. Tongue base retraction allowed a narrow column of contrast or air between the retracted tongue base and the posterior pharyngeal wall. Pharyngeal residue was a collection of residue within or on pharyngeal structures. Esophageal clearance in the upright position could not be assessed due to logistical reasons not related to physiologic impairment. Oral Impairment Score: 11 Pharyngeal Impairment Score: 11 (absence of score, component 13) Esophageal Impairment Score: --- (absence of score, component 17) Laryngeal Penetration and Aspiration: Neither penetration nor aspiration was observed in today's study with Cookie, Pudding-thick, Honey-thick. Both Penetration and Aspiration were observed in today's study. Thin Contrast entered the airway, remained above the vocal folds, and was not ejected from the airway. [place]-thick Contrast entered the airway, passed below the vocal folds, and no effort was made to eject. ASSESSMENT: This exam was performed by the radiologist and the speech pathologist. Patient was seated upright at 90 degrees for lateral view only. He fed himself when handed utensils and trialed the following consistencies: Thin liquid (individual cup sips) [place] thick liquid (individual cup sips) Honey thick liquid (individual cup sips) Puree (mixture applesauce w/ barium pudding) Ground (mixture chicken salad w/ barium pudding) Regular (shortbread cookie coated w/ barium pudding) Good lip closure with no anterior loss of bolus from the oral cavity. Poor tongue control, marked by repetitive tongue rocking motion and subsequent spillage posteriorly to the pharynx with trace liquid collecting in the valleculae prior to initiating the pharyngeal swallow. Mastication was prolonged with disorganized pattern (up-and-down chewing). There was minimal lingual residue which cleared with subsequent swallows. Pharyngeal swallow trigger initiated as the bolus head reached the posterior laryngeal surface of the epiglottis. There was trace liquid escaping into the space between the soft palate and pharyngeal wall, indicating reduced soft palate elevation. Complete laryngeal elevation, but with partially open airway due to partial, at times no epiglottic inversion and incomplete laryngeal vestibular closure. There was moderate pharyngeal retention, mostly in the valleculae, but also lining the tongue base, posterior pharyngeal wall, and pyriforms. -Thin liquid: On trials of thin liquid there was penetration above and to the level of the vocal folds. On smaller cup sips, there was flash penetration seen intermittently. A trace amount of contrast entered the airway above the vocal folds and subsequently cleared. With larger bolus size, there was increased penetration, with more contrast entering the airway to the level of the vocal folds with no spontaneous clearance. Patient eventually cleared his throat after a short delay, which reduced, but did not entirely clear contrast from the airway. There was minimal pharyngeal retention, reduced with dry swallows. Patient did not follow verbal command or visual cuing for dry swallows. He did reflexively elicit a dry swallow when presented with an empty teaspoon. -[place] thick liquid: There was subglottic aspiration seen on this consistency, with a trace amount of liquid entering the airway during the swallow and passing below the vocal folds. No spontaneous protective reflex was produced. Patient did not follow verbal directives or modeling to cough or clear his throat. There was moderate retention, mostly in the valleculae, which was reduced with dry swallows elicited with presentation of a dry teaspoon. -Honey thick liquid & Puree: Patient w/ maladaptive munching pattern on puree consistency, but not on liquids. No evidence of aspiration or penetration on trials of honey thick and puree consistencies. Moderate retention, mostly in the valleculae, was reduced with dry swallows elicited with presentation of a dry teaspoon. -Ground solid: No evidence of aspiration or penetration. Moderate retention, mostly in the valleculae, was reduced with dry swallows elicited with presentation of a dry teaspoon. -Regular solid: Slower mastication on this texture. There was increased pharyngeal retention, with patient expectorating contrast which had collected in the valleculae back into the oral cavity on several attempts to swallow. Patient eventually swallowed bolus, with moderate vallecular retention noted post-swallow. The following compensatory strategies have not been used until today's study, but when employed, improved swallowing function: Honey-thick Liquid eliminated Aspiration Bolus Volume Change decreased Penetration Additional Swallow(s) per Bolus decreased Oral Residue, Pharyngeal Residue Throat Clear decreased Penetration Patient history with the following compensatory strategies is unknown. When employed during today's study, these strategies improved swallowing function: Throat Clear decreased Penetration The following compensatory strategies appear to have had a negative impact on swallowing function: [place]-thick Liquid increased Aspiration Liquid Intake Recommendation: Honey Thick Liquid Intake Strategies: Small Sips, No Straws, Double Swallow Dietary Recommendations: Grnd/Mech Altered (NDD2) Medication Administration: Crushed with Puree Please contact the pharmacy regarding appropriate crushable or liquid drug formulations that are available whenever modified delivery is recommended. Compensatory Strategies Recommended: Sitting Upright (90 deg), Double Swallow, No Straw, Small Bites and Sips, Rate of Ingestion Change Supervision during eating and or drinking: Direct Supervision (1:1) Recommended Treatments: Compens. Strategy Educat. Recommendation for Speech Therapy: Speech Therapy through Rehab Facility Text Comment: PLAN: Intake Recommendations: Route: PO Diet Grade: Mechanical Soft Liquid Consistencies: Honey Post-Study Functional Oral Intake Scale (FOIS): 5- Total oral intake of multiple consistencies requiring special preparation Patient presents with severe oropharyngeal dysphagia, in the setting of underlying dementia. Patient is able to feed himself, however, displays some impulsive behaviors, attempting to take large sips or rapid sequential sips of liquid. He exhibited difficulty following verbal commands or imitating models for strategies. Elevated risk of aspiration is identified due to patient?s reduced cognitive status. Oral phase was slowed and disorganized, marked by poor tongue control, tongue pumping behavior, premature posterior spillage, and disorganized chewing pattern. Partially open airway, with partial to no epiglottic inversion and incomplete laryngeal vestibular closure. There was penetration seen on thin liquid and subglottic aspiration on nectar thick liquid. Patient did not spontaneously elicit protective cough or throat clear, and exhibited difficulty following commands when directed to cough or clear his throat. Moderate pharyngeal retention was seen, with contrast collecting mostly in the valleculae. Patient did not follow verbal directive for dry swallow, but did reflexively swallow when presented with an empty teaspoon. Dry swallows reduced pharyngeal residuals. Therapy Recommendations: Recommend continue speech therapy at the long-term care facility for the treatment of dysphagia. Treatment to include PO trials with close monitoring of PO tolerance, education for caregiver(s)/nursing staff, and training of compensatory strategies. Recommend GROUND/MECHANICALLY ALTERED solids (NDD2) and HONEY THICK liquids, pills to be CRUSHED in PUREE. Patient presents with confusion and difficulty following commands. Patient is encouraged to feed himself to promote independence, however, will need DIRECT 1-on-1 SUPERVISION AND CUING to ensure precautions for swallow safety. Strategies include: -Pour smaller quantity of liquid into a cup to control for smaller sip size -AVOID the use of straws -Encourage patient to swallow again between sips by presenting patient with an empty spoon -Monitor patient to ensure he is taking small bites -Oral cavity to be clear before taking next bite -Encourage patient to swallow again between bites by presenting patient with an empty spoon -Maintain upright 90 degree position during PO intake and for at least 30 minutes afterwards -Ensure daily oral care routine to reduce the risk of aspiration pneumonia The following compensatory strategies and/or therapeutic exercises will be part of the upcoming therapy/management plan: Honey-thick Liquid Bolus Volume Change Additional Swallow(s) per Bolus Fci Goals: ? The patient will tolerate the least restrictive diet with a safe/efficient swallow to maintain adequate nutrition and hydration. ? The patient and/or family will participate in further education for swallowing goals. Short Term Goals: ? Diet - The patient will tolerate a mechanical soft diet with honey thick liquids without signs or symptoms of penetration/aspiration 100% of the time. - The patient will participate in therapeutic PO trials with the ANIMAL CONTROL OFFICER. ? Guidelines - The patient will comply with/recall the following guidelines/strategies 100% of the time with maximum cuing: Honey-thick Liquid, Bolus Volume Change, Rate of Ingestion Change, Additional Swallow(s) per Bolus. ? Education - The patient, family, caregiver, nurse will verbalize/demonstrate understanding of the results of this evaluation, the above recommendations, and the swallowing guidelines. Frequency/Duration: 2x weekly x 8-10 weeks Date Range for Service Requested: Timeline to reassess: PRN Clinician - Supplemental, Miscellaneous Communication: It is important to note MBSS objective studies are snapshots in time and Patient function might vary with factors such as time of day or concomitant medical conditions. For this reason, the final treatment plan for this patient should rest with their medical care team. Additional recommendations should be considered with the totality of the Patient in mind. Thank for the opportunity to participate in the care of this patient. If you have any questions about the content of this report, please contact the [facility] at [facility]. Education: Education regarding findings from today's study and plans for therapy were provided to Family/caregiver only through Verbal Instruction. Understanding was expressed by the Family/caregiver only. Facing Cutting Machine Operator Clinician/Clinical Fellow: No Supervisory Statement: N/A Speech Language Pathologist: Emmanuelle Nixon M.A., CCC-ANIMAL CONTROL OFFICER
== END 2025-03-07 14:40 | disposition home or self-care (01) ==
LOC: HO.XRAY 14:39
PROVIDERS: PCP Internal Medicine Interventional Cardiology; Visit Provider Internal Medicine Interventional Cardiology
DX: R13.10 Dysphagia, unspecified (principal)
CPT/HCPCS: 74230; 92611

== ENCOUNTER → 2025-03-07 14:46 | Outpatient (BNV) | payer OTHER, SELFPAY | PROVIDERS: PCP Internal Medicine Interventional Cardiology; Visit Provider Radiology Diagnostic Radiology | DX: R13.10 Dysphagia, unspecified (principal) | CPT/HCPCS: 74230 ==

== ENCOUNTER 2025-04-05 07:26 | Outpatient (REF) | payer OTHER, SELFPAY ==
--- OUTSIDE RECORDS SUMMARY | 2025-04-05 07:28 | XMS_ITS | Encounter Summary ---
Author Organization [facility] Address [address] [place] [address] Phone Care Team Providers Care Signal Maintainer Name Role Phone Brian Hurd MD Primary Care Provider [phone] Reason for Visit * Reason Comments Other Encounter Details Date Type Department Care Team (Late st Contact Info) Description 05/18/2016 Refill [facility] [address] [place] [address] Brian Hurd MD [address] [address] [email or web address] U Other Social History Tobacco Use Types [...] on filedocumented in this encounter Care Teams Signal Maintainer Relationship Specialty Start Date End Date Brian Hurd MD [address] [place] [address] [email or web address] PCP - General Internal Medicine 05/18/15 documented as of this encounter Additional Source Comments The information contained in this document represents components of the legal health record. It is not the complete legal health record.[facility]
--- OUTSIDE RECORDS SUMMARY | 2025-04-05 07:28 | XMS_ITS | Encounter Summary ---
Author Organization [facility] Address [address] [facility] [address] [place] [address] Phone Care Team Providers Care Search Developer Name Role Phone Brian Hurd MD Primary Care Provider [phone] Reason for Visit * Reason Comments Other Encounter Details Date Type Department Care Team (Late st Contact Info) Description 09/02/2015 Refill [facility] [address] [place] [address] Brian Hurd MD [address] [address] [email or web address] U Other Social History Tobacco Use Types [...] on filedocumented in this encounter Care Teams Search Developer Relationship Specialty Start Date End Date Brian Hurd MD [address], [place] [address] [email or web address] PCP - General Internal Medicine 05/18/15 documented as of this encounter Additional Source Comments The information contained in this document represents components of the legal health record. It is not the complete legal health record.[facility]
--- OUTSIDE RECORDS SUMMARY | 2025-04-05 07:28 | XMS_ITS | Clinical Summary ---
Author Organization [facility] Address [address] [place] [address] Phone Care Team Providers Care Belting Cutter Name Role Phone Brian Hurd MD Primary Care Provider [phone] Allergies Active Allergy Reactions Criticality Noted Date Comments Sulfa (Sulfonamide Antibiotics) Rash Low 06/05 Family History Medical History Relation Comments Heart disease Father Heart disease Maternal Grandfather Stroke Maternal Grandmother Lung cancer Mother Heart disease Paternal Grandfather Heart disease Paternal Grandmother Breast cancer Sister Relation Status Comments Father Maternal Grandfather Maternal Grandmother Mother Paternal Grandfather Paternal Grandmother Sister Social History Tobacco Use Types Packs/Day Years Used Date Smoking Tobacco: Never Alcohol Use Standard Drinks/Week Comments No 0 (1 standard drink = 0.6 oz pur e alcohol) Education Answer Date Recorded Are you interested in more education? Not on max e 11/29/2022 Are you concerned about learning? Not on file 11/29/2022 No 11/29/2022 No 11/29/2022 Digital Access Answer Date Recorded No 12/30/2022 No 12/30/2022 No 12/30/2022 Reliable internet access at home? Not on file 12/30/2022 Device with a working camera? Not on file Sex and Gender Information Value Date Recorded Sex Assigned at Not on file Legal Sex Male 2:55 PM EDT Gender Identity Not on file Sexual Orientation Not on file Last Filed Vital Signs Vital Sign Reading Time Taken Comments Blood Pressure 148/47 06/26/2015 8:10 AM EST Pulse 58 06/26/2015 8:10 AM EST Temperature - - Respiratory Rate - - Oxygen Saturation 99% 06/26/2015 8:10 AM EST Inhaled Oxygen Concentration - - Weight 69.9 kg (154 lb) 06/26/2015 8:10 AM EST Height 185.4 cm (6' 1 ) 06/26/2015 8:10 AM EST Body Mass Index 20.32 06/26/2015 8:10 AM EST Plan of Treatment Health Maintenance Due Date Last Done Comments Adult Td,Tdap Booster 1940 DEPRESSION SCREENING 1952 PNEUMOCOCCAL VACCINES (50+ years) (1 of 1 - PCV) 1990 RSV VACCINE (1 - 1-dose 75+ series) 2015 ZOSTER VACCINES (2 of 2) 10/17/2018 08/22/2018 COVID-19 VACCINE (3 - season) 2024 10/09/2020, 09/18/2020 INFLUENZA VACCINE (#1) 2025 , 03/31/2019, 05/21/2018, Additional history exists HEPATITIS A VACCINES Aged Out No long er eligible based on patient's age to complete this topic HIB VACCINES Aged Out No longer eligi ble based on patient's age to complete this topic MENINGOCOCCAL VACCINES (ACWY) Aged Out No longer eligible based on patient's age to complete this topic MENINGOCOCCAL VACCINES (B) Aged Out N o longer eligible based on patient's age to complete this topic Medical Devices Not on file Insurance [facility] TOTAL CHOICE INDEMNITY BELINDA LEON [id number] [facility] TOTAL CHOICE INDEMNITY [facility] TOTAL CHOICE INDEMNITY [facility]OTAL [facility]ICE [facility]OTAL [facility]ICE [facility] TOTAL CHOICE INDEMNITY [facility] TOTAL CHOICE INDEMNITY [facility] [place] [id number] [facility] TOTAL CHOICE INDEMNITY Care Teams Belting Cutter Relationship Specialty Start Date End Date Brian Hurd MD [address], [place] [address] [email or web address] PCP - General Internal Medicine 05/18/15 Additional Source Comments The information contained in this document represents components of the legal health record. It is not the complete legal health record.[facility]
--- OUTSIDE RECORDS SUMMARY | 2025-04-05 07:28 | XMS_ITS | Encounter Summary ---
Author Organization [facility] Address [address] [facility] [address] [place] [address] Phone Care Team Providers Care Mandrel Puller Name Role Phone Brian Hurd MD Primary Care Provider [phone] Reason for Visit * Reason Comments Other Encounter Details Date Type Department Care Team (Late st Contact Info) Description 10/04/2015 Refill [facility] [address] [place] [address] Brian Hurd MD [address] [address] [email or web address] U Other Social History Tobacco Use Types [...] on filedocumented in this encounter Care Teams Mandrel Puller Relationship Specialty Start Date End Date Brian Hurd MD [address], [place] [address] [email or web address] PCP - General Internal Medicine 05/18/15 documented as of this encounter Additional Source Comments The information contained in this document represents components of the legal health record. It is not the complete legal health record.[facility]
[2025-04-05 07:49] LABS: Anion Gap 12 (12-20); Blood Urea Nitrogen 28 mg/dL (9-16); Calcium 8.6 mg/dL (8.4-10.2); Carbon Dioxide 27 mmol/L (22-29); Chloride 107 mmol/L (96-108); Cholesterol 103 mg/dL (<200); Estimated Glomerular Filt Rate > 60; HDL Cholesterol 36 mg/dL (>40); Potassium 4.4 mmol/L (3.3-5.1); Sodium 142 mmol/L (135-145); Triglycerides 56 mg/dL (<150)
[2025-04-05 07:51] LABS: Hemoglobin A1C 205.3466 umol/L; Total Hemoglobin (HGBA1C) 3329.7330 umol/L
== END 2025-04-05 07:27 | disposition home or self-care (01) ==
LOC: HO.HSH2N 07:26
PROVIDERS: Visit Provider Internal Medicine Interventional Cardiology
DX: E11.9 Type 2 diabetes mellitus without complications (principal); E78.5 Hyperlipidemia, unspecified; F03.90 Unspecified dementia, unspecified severity, without behavioral disturbance, psychotic disturbance, mood disturbance, and anxiety
CPT/HCPCS: 36415; 80048; 80061; 83036

== ENCOUNTER 2025-07-08 06:08 | Outpatient (REF) | payer OTHER, SELFPAY ==
[2025-07-08 06:10] LABS: MANUAL DIFF FLAG NO
--- OUTSIDE RECORDS SUMMARY | 2025-07-08 06:10 | XMS_ITS | Clinical Summary ---
Author Organization [facility] Address [address] [facility] [address] [place] [address] Care Team Providers Care Grain Picker Name Role Phone Unavailable Primary Care Provider [...] MINI PEN NEEDLES 31G X 5 MM [facility] USE TO INJECT INSULIN 4 TIMES DAILY. [...] mg by mouth 2 times daily. Active glucose (Glutose) 40 % gel oral gel Take 15 g by mouth if needed for low blood sugar. Active Active Problems No known active problems Encounters Date Type Department Care Team Description 06/22/2025 8:00 AM EST Office Visit [facility] [address] [place] [address] Silvina Murphy 06/15/2025 11:30 AM EST Office Visit [facility] [address] [place] [address] Kash Yepez DMD from Last 3 Months Social History Tobacco [...] Mass Index - - Plan of Treatment Health Maintenance Due Date [...] 75+ series) 2015 COVID-19 Vaccine ( - 2024-2 6 season) 2025 Influenza Vaccine (#1) 2025 Dental X-Ray: Bitewings 07/27/2025 07/26/2024 Dental Prophylaxis 08/20/2025 02/16/2025, 11/18/2024, 07/26/2024 Dental Oral Exam 12/14/2025 06/15/2025, 03/16/2025, 08/18/2024 Tobacco Screening 06/22/2026 06/22/2025 Dental X-Ray: Full Mouth 07/27/2027 07/26/2024 HIB [...] Procedure Name Priority Date/Time Associated Diagnosis Comments SCALING IN PRESENCE OF MOD-SEVERE GING INFL - FULL MOUTH, AFTER ORAL EVAL Routine 06/22/2025 8:00 AM EST INTRAORAL - PERIAPICAL EACH ADDITIONAL RADIOGRAPHIC IMAGE Routine 06/22/2025 8:00 AM EST INTRAORAL - PERIAPICAL EACH ADDITIONAL RADIOGRAPHIC IMAGE Routine 06/22/2025 8:00 AM EST INTRAORAL - PERIAPICAL EACH ADDITIONAL RADIOGRAPHIC IMAGE Routine 06/22/2025 8:00 AM EST INTRAORAL - PERIAPICAL EACH ADDITIONAL RADIOGRAPHIC IMAGE Routine 06/22/2025 8:00 AM EST INTRAORAL - PERIAPICAL FIRST RADIOGRAPHIC IMAGE Routine 06/22/2025 8:00 AM EST Full TOPICAL APPLICATION OF FLUORIDE VARNISH Routine 06/22/2025 8:00 AM EST BEHAVIOR MANAGEMENT Routine 06/15/2025 1 1:30 AM EST PERIODIC ORAL EVALUATION - ESTABLISHED PATIENT Routine 06/15/2025 11:30 AM EST PROPHYLAXIS - ADULT Routine 02/16/2025 8 :45 AM EDT INTRAORAL - COMPLETE SERIES OF RADIOGRAPHIC IMAGES Routine 07/26/2024 2:00 PM EST from Last 3 Months or Most Recently Relevant to Health Maintenance
--- OUTSIDE RECORDS SUMMARY | 2025-07-08 06:10 | XMS_ITS | Clinical Summary ---
Author Organization [facility] Address [address] [place] [phone] Phone Care Team Providers Care Ordnance Equipment Worker Name Role Phone Brian Hurd MD Primary Care Provider Allergies Active Allergy Reactions Criticality Noted Date [...] ZOSTER VACCINES (2 of 2) 10/17/2018 08/22/2018 INFLUENZA VACCINE (#1) 2025 , 03/31/2019, 05/21/2018, Additional history exists COVID-19 VACCINE ( season) 2025 10/09/2020, 09/18/2020 HEPATITIS A VACCINES Aged Out No long [...] topic Medical Devices Not on file Insurance [facility] TOTAL CHOICE INDEMNITY BELINDA LEON [id number] [facility] TOTAL CHOICE INDEMNITY [facility] TOTAL CHOICE INDEMNITY [facility] TOTAL CHOICE [facility] TOTAL CHOICE [facility]MNITY [facility] TOTAL CHOICE INDEMNITY [facility] TOTAL CHOICE INDEMNITY [employer] [facility] [place] [id number] [employer] [facility] TOTAL CHOICE INDEMNITY Care Teams Ordnance Equipment Worker Relationship Specialty Start Date End Date Brian Hurd MD [address], [place] [address] [email or web address] PCP - General Internal Medicine 05/18/15 Additional Source Comments The information contained in this document represents components of the legal health record. It is not the complete legal health record.[facility]
--- OUTSIDE RECORDS SUMMARY | 2025-07-08 06:10 | XMS_ITS | Encounter Summary ---
Author Organization [facility] Address [address] [facility] [address] [place] [address] Phone Care Team Providers Care Certified Anesthesiologist Assistant Name Role Phone Brian Hurd MD Primary Care Provider [phone] Reason for Visit * Reason Comments Other Encounter Details Date Type Department Care Team (Late st Contact Info) Description 05/18/2016 Refill [facility] [address] [place] [id number] Brian Hurd MD [address] [address] [email or web address] U Other Social History Tobacco Use Types [...] on filedocumented in this encounter Care Teams Certified Anesthesiologist Assistant Relationship Specialty Start Date End Date Brian Hurd MD [address], [place] [address] [email or web address] PCP - General Internal Medicine 05/18/15 documented as of this encounter Additional Source Comments The information contained in this document represents components of the legal health record. It is not the complete legal health record.[facility]
--- OUTSIDE RECORDS SUMMARY | 2025-07-08 06:10 | XMS_ITS | Encounter Summary ---
Author Organization [facility] Address [address] [facility] [facility] [address] [place] [address] Phone Care Team Providers Care Lieutenant/Deputy Name Role Phone Brian Hurd MD Primary Care Provider [phone] Reason for Visit * Reason Comments Other Encounter Details Date Type Department Care Team (Late st Contact Info) Description 10/04/2015 Refill [facility] [address] [place] [address] Brian Hurd MD [address] [address] [email or web address] U Other Social History Tobacco Use Types [...] on filedocumented in this encounter Care Teams Lieutenant/Deputy Relationship Specialty Start Date End Date Brian Hurd MD [address], [place] [address] [email or web address] PCP - General Internal Medicine 05/18/15 documented as of this encounter Additional Source Comments The information contained in this document represents components of the legal health record. It is not the complete legal health record.[facility]
--- OUTSIDE RECORDS SUMMARY | 2025-07-08 06:10 | XMS_ITS | Encounter Summary ---
Author Organization [facility] Address [address] [facility] [address] [place] [phone] Phone Care Team Providers Care Safety Manager Name Role Phone Brian Hurd MD Primary Care Provider [phone] Reason for Visit * Reason Comments Other Encounter Details Date Type Department Care Team (Late st Contact Info) Description 09/02/2015 Refill [facility] [address] [place] [phone] Brian Hurd MD [address] [address] [email or web address] U Other Social History Tobacco Use Types [...] on filedocumented in this encounter Care Teams Safety Manager Relationship Specialty Start Date End Date Brian Hurd MD [address], [place] [address] [email or web address] PCP - General Internal Medicine 05/18/15 documented as of this encounter Additional Source Comments The information contained in this document represents components of the legal health record. It is not the complete legal health record.[facility]
[2025-07-08 06:39] LABS: Hematocrit 39.8 % (42.0-52.0); Hemoglobin 13.0 g/dl (14.0-18.0); Imm Gran Abs Auto 0.01 X10*3/uL (0.00-0.03); Imm Gran Pct Auto 0.1 % (0.0-0.4); Lymphocytes Absolute Auto 1.4 X10*3/uL (1.2-4.9); Mean Corpuscular HGB Conc 32.7 g/dl (31.0-36.0); Mean Corpuscular Hemoglobin 31.8 pg (27.0-33.0); Mean Corpuscular Volume 97.3 fL (80.0-98.0); NRBC Abs Auto 0.000 X10*3/uL (0.0-0.012); NRBC Pct Auto 0.0 /100WBC (0.0-0.2); Platelet Count 172 X10*3/uL (160-400); Red Blood Count 4.09 X10*6/uL (4.60-5.80); White Blood Count 7.3 X10*3/uL (4.8-10.8)
[2025-07-08 06:51] LABS: Alanine Aminotransferase 8 U/L (0-40); Albumin Level 3.4 g/dL (3.5-5.0); Alkaline Phosphatase 90 U/L (39-117); Anion Gap 10 (12-20); Aspartate Amino Transferase 15 U/L (5-37); Blood Urea Nitrogen 18 mg/dL (9-16); Calcium 8.6 mg/dL (8.4-10.2); Carbon Dioxide 29 mmol/L (22-29); Chloride 105 mmol/L (96-108); Estimated Glomerular Filt Rate > 60; Potassium 4.3 mmol/L (3.3-5.1); Sodium 140 mmol/L (135-145); Total Protein 5.8 g/dL (6.5-8.0)
[2025-07-08 07:06] LABS: Thyroid Stimulating Hormone 2.51 uIU/mL (0.32-4.0)
== END 2025-07-08 06:09 | disposition home or self-care (01) ==
LOC: HO.HSH2N 06:08
PROVIDERS: Visit Provider Internal Medicine Interventional Cardiology
DX: E11.40 Type 2 diabetes mellitus with diabetic neuropathy, unspecified (principal)
CPT/HCPCS: 36415; 80053; 83036; 84443; 85025